=== PATIENT | male | born 1980 | race Caucasian/White ===

== ENCOUNTER 2020-09-20 20:20 | Emergency (ER) | payer BC ==
--- NOTE | 2020-09-20 21:38 | EDM.PDOC ---
ED HPI GENERAL MEDICAL PROBLEM - General Chief Complaint: Respiratory Problem Stated Complaint: COUGH/NO ENERGY Time Seen by Provider: 09/20/20 21:15 Source of Information: Reports: Patient History Limitations: Reports: No Limitations - History of Present Illness INITIAL COMMENTS - FREE TEXT/NARRATIVE: Mr. 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 He developed a nonproductive cough that causes chest discomfort and tightness, on 09/15/2020, then dyspnea on 09/17/2020. He has had slight nausea, but no vomiting. No abdominal pain or diarrhea. The patient states that he has taken some acetaminophen, but none since . Here in the ED, the patient is found to be hemodynamically stable, afebrile, saturating 97% on room air. He appears to be comfortable, no acute distress. Prior to 09/11/2020, the patient denies having a recent fever, chills, sore throat, ear pain, nasal or sinus congestion, cough, dyspnea, chest pain, palpitations, nausea, vomiting, constipation, diarrhea, abdominal pain, urinary symptoms, recent weight gain or weight loss, recent bloody bowel movements or black bowel movements, recent joint aches, headaches, or rashes. The patient's PCP is Dr. Luciano Lehman. His Hospice Rn is at [facility]. He has not received a COVID vaccination. - Related Data Allergies Allergy/AdvReac Type Severity Reaction Status Date / Time No Known Allergies Allergy Verified 09/20/20 20:58 Home Meds: Home Meds Omeprazole Magnesium [Prilosec Otc] 20 mg PO DAILY 09/20/20 [History] Tacrolimus 2 mg PO BID 09/20/20 [History] atorvaSTATin [Lipitor] 10 mg PO DAILY 09/20/20 [History] lisinopriL [Lisinopril] 10 mg PO DAILY 09/20/20 [History] mycophenolate mofetiL [Mycophenolate Mofetil] 500 mg PO BID 09/20/20 [History] predniSONE [Prednisone] 5 mg PO DAILY 09/20/20 [History] Past Medical History Cardiovascular History: Reports: High Cholesterol, Hypertension Genitourinary History: Reports: Chronic Renal Insuffiency (medication-induced, s/p kidney transplant Aug 2009) Musculoskeletal History: Reports: Gout (suspected, not confirmed) - Past Surgical History Male Surgical History: Reports: Nephrectomy (left, at 5 yrs old), Other (See Below) (Kidney transplant August 2009) Neurological Surgical History: Reports: Lumbar Spine (discectomy) Social & Family History - Tobacco Use Tobacco Use Status *Q: Never Tobacco User - Alcohol Use Alcohol Use History: Yes Alcohol Use Frequency: Socially - Recreational Drug Use Recreational Drug Use: No - Living Situation & Occupation Living situation: Reports: , with Spouse, with Family (2 kids) Occupation: Employed (Technical Services Coordinator of an el?) ED ROS GENERAL - Review of Systems Review Of Systems: Comprehensive ROS is negative, except as noted in HPI. ED EXAM, GENERAL - Physical Exam Exam: See Below Exam Limited By: No Limitations General Appearance: Alert, WD/WN, No Apparent Distress Eye Exam: Bilateral Eye: EOMI, Normal Inspection Ears: Normal External Exam, Hearing Grossly Normal Nose: Normal Inspection Throat/Mouth: Normal Inspection, Normal Lips, Normal Voice, No Airway Compromise Head: Atraumatic, Normocephalic Neck: Normal Inspection, Full Range of Motion Respiratory/Chest: No Respiratory Distress, Lungs Clear, Normal Breath Sounds, No Accessory Muscle Use, Other (Taking a deep breath induces a cough). No: Decreased Breath Sounds, Crackles, Rhonchi, Wheezing, Stridor, Prolonged Expiration Cardiovascular: Normal Peripheral Pulses, Regular Rate, Rhythm, No Edema, No Gallop, No JVD, No Murmur, No Rub Peripheral Pulses: 3+: Radial (L), Radial (R) GI/Abdominal: Normal Bowel Sounds, Soft, Non-Tender, No Organomegaly, No Distention, No Abnormal Bruit, No Mass Back Exam: Normal Inspection, Full Range of Motion, NT Extremities: Normal Inspection, Normal Range of Motion, No Pedal Edema, Normal Capillary Refill Neurological: Alert, Oriented, Normal Cognition, No Motor/Sensory Deficits Psychiatric: Normal Affect Skin Exam: Warm, Dry, Intact, Normal Color, No Rash Course - Vital Signs Last Recorded V/S: Last Vital Signs Temp 37.0 C 09/20/20 21:13 Pulse 100 09/20/20 21:13 Resp 20 09/20/20 21:13 BP 117/73 09/20/20 21:13 Pulse Ox 96 09/20/20 21:13 - Orders/Labs/Meds Orders: Active Orders 24 hr Category Date Time Status Chest 2V [CR] Stat Exams 09/20/20 21:33 Taken BLOOD CULTURE [MREF] Stat Lab 09/20/20 22:42 Received BLOOD CULTURE [MREF] Stat Lab 09/20/20 22:50 Received Blood Culture x2 Reflex Set [OM.PC] Stat Oth 09/20/20 22:22 Ordered Labs: Laboratory Tests 09/20/20 09/20/20 09/20/20 Range/Units 21:09 22:42 22:42 WBC 4.12 L (4.23-9.07) K/mm3 RBC 4.32 L (4.63-6.08) M/mm3 Hgb 12.9 L (13.7-17.5) gm/dl Hct 36.8 L (40.1-51.0) % MCV 85.2 (79.0-92.2) fl MCH 29.9 (25.7-32.2) pg MCHC 35.1 (32.2-35.5) g/dl RDW Std Deviation 41.4 (35.1-43.9) fL Plt Count 182 (163-337) K/mm3 MPV 9.5 (9.4-12.3) fl Neutrophils % (Manual) 83 H (40-60) % Band Neutrophils % 0 (0-10) % Lymphocytes % (Manual) 12 L (20-40) % Atypical Lymphs % 0 % Monocytes % (Manual) 5 (2-10) % Eosinophils % (Manual) 0 L (0.8-7.0) % Basophils % (Manual) 0 L (0.2-1.2) Platelet Estimate Adequate RBC Morph Comment Normal D-Dimer, Quantitative (0.19-0.50) mg/L Sodium 135 L (136-145) mEq/L Potassium 4.5 (3.5-5.1) mEq/L Chloride 104 (98-107) mEq/L Carbon Dioxide 15 L (21-32) mEq/L Anion Gap 20.5 H (5-15) BUN 35 H (7-18) mg/dL Creatinine 1.6 H (0.7-1.3) mg/dL Est Cr Clr Drug Dosing 70.74 mL/min Estimated GFR (MDRD) 49 (>60) mL/min BUN/Creatinine Ratio 21.9 H (14-18) Glucose 155 H (70-99) mg/dL Lactic Acid (0.4-2.0) mmol/L Calcium 8.0 L (8.5-10.1) mg/dL Magnesium 1.7 L (1.8-2.4) mg/dL Total Bilirubin 0.4 (0.2-1.0) mg/dL AST 23 (15-37) U/L ALT 40 (16-63) U/L Alkaline Phosphatase 66 (46-116) U/L Total Protein 6.8 (6.4-8.2) g/dl Albumin 3.0 L (3.4-5.0) g/dl Globulin 3.8 gm/dL Albumin/Globulin Ratio 0.8 L (1-2) SARS-CoV-2 RNA (ANYA) Positive H (NEGATIVE) 09/20/20 09/20/20 Range/Units 22:42 22:50 WBC (4.23-9.07) K/mm3 RBC (4.63-6.08) M/mm3 Hgb (13.7-17.5) gm/dl Hct (40.1-51.0) % MCV (79.0-92.2) fl MCH (25.7-32.2) pg MCHC (32.2-35.5) g/dl RDW Std Deviation (35.1-43.9) fL Plt Count (163-337) K/mm3 MPV (9.4-12.3) fl Neutrophils % (Manual) (40-60) % Band Neutrophils % (0-10) % Lymphocytes % (Manual) (20-40) % Atypical Lymphs % % Monocytes % (Manual) (2-10) % Eosinophils % (Manual) (0.8-7.0) % Basophils % (Manual) (0.2-1.2) Platelet Estimate RBC Morph Comment D-Dimer, Quantitative 0.36 (0.19-0.50) mg/L Sodium (136-145) mEq/L Potassium (3.5-5.1) mEq/L Chloride (98-107) mEq/L Carbon Dioxide (21-32) mEq/L Anion Gap (5-15) BUN (7-18) mg/dL Creatinine (0.7-1.3) mg/dL Est Cr Clr Drug Dosing mL/min Estimated GFR (MDRD) (>60) mL/min BUN/Creatinine Ratio (14-18) Glucose (70-99) mg/dL Lactic Acid 0.8 (0.4-2.0) mmol/L Calcium (8.5-10.1) mg/dL Magnesium (1.8-2.4) mg/dL Total Bilirubin (0.2-1.0) mg/dL AST (15-37) U/L ALT (16-63) U/L Alkaline Phosphatase (46-116) U/L Total Protein (6.4-8.2) g/dl Albumin (3.4-5.0) g/dl Globulin gm/dL Albumin/Globulin Ratio (1-2) SARS-CoV-2 RNA (ANYA) (NEGATIVE) Meds: Medications Discontinued Medications Generic Name Dose Route Start Last Admin Trade Name Freq PRN Reason Stop Dose Admin Sodium Chloride 1,000 mls @ 999 mls/hr 09/20/20 23:48 09/21/20 00:06 Normal Saline IV 09/21/20 00:48 999 mls/hr ONETIME ONE Administration - Re-Assessments/Exams Free Text/Narrative Re-Assessment/Exam: 09/20/20 21:34 As above, the patient developed a fever and chills on 09/11/2020, which resolved on or about the , a nonproductive cough on Sunday the , which induces chest tightness and discomfort, and dyspnea on or about Sunday. He has taken some acetaminophen, but none since . He is afebrile, with an oxygen saturation of 97% here in the ED, and his physical exam is entirely unremarkable, with the exception that taking a deep breath induces his cough. His nurse swabbed him for the SARS-CoV-2 virus, and I have added a chest x-ray. Provided his chest x-ray is unremarkable, I do not see an indication for blood work. 09/20/20 22:18 Two-view chest radiograph reviewed. The cardiac silhouette is within normal limits. No pulmonary vascular congestion. No pleural effusions. There is a hazy infiltrate in the left upper lobe, consistent with pneumonia. A small right-sided infiltrate cannot be ruled out. No pneumothorax. Formal read per the Radiologist pending. The patient's swab for the SARS-CoV-2 virus is positive. As in the above, I will order some blood tests, including 2 sets of blood cultures, to help distinguish if the patient has a superimposed bacterial pneumonia. 09/20/20 22:31 Test results discussed with the patient. Because he is on immunosuppressive medications (tacrolimus + prednisone) to prevent rejection of his transplanted kidney, the patient is a candidate to receive Regen-Cov. We discussed this at length. The patient wants to discuss it with his , and will let me know if he wants to proceed with it. 09/20/20 23:03 Notified that the patient has elected to NOT receive Regen-Cov. 09/20/20 23:40 The patient's CBC is remarkable for leukopenia of 4.12, but with 0% bandemia. He has lymphopenia of 12%. His H/H are mildly depressed at 12.9/36.8, with the remainder of his CBC being unremarkable. His CMP is remarkable for slight hyponatremia of 135, an anion gap mildly elevated at 20.5 with a bicarbonate depressed at 15, a BUN/Cr elevated at 35/1.6, and hyperglycemia of 155, with the remainder of his CMP being unremarkable. His magnesium level is slightly depressed at 1.7. His lactic acid level is within normal limits at 0.8. His D-dimer is within normal limits at 0.36. 09/20/20 23:48 Test results discussed with the patient. He states that his Cr is normally 1.1. Based on that, he will be given 1 L of IV fluid before being discharged home. 09/21/20 01:32 The IV fluid has finished infusing. The patient states that he feels well enough to go home. I will have him discharge him home with recommendation that he stays adequately hydrated, then follow-up with Dr. Lehman later this week to recheck his kidney function. The patient will need to strictly isolate for 10 days, then get rechecked for the SARS-CoV-2 virus. Departure - Departure Time of Disposition: 01:34 Disposition: Home, Self-Care 01 Condition: Good Clinical Impression: COVID-19, Acute renal failure - Discharge Information *PRESCRIPTION DRUG MONITORING PROGRAM REVIEWED*: Not Applicable *COPY OF PRESCRIPTION DRUG MONITORING REPORT IN PATIENT RYDER: Not Applicable Referrals: Luciano Lehman MD [Primary Care Provider] - Forms: ED Department Discharge Additional Instructions: You were seen in the emergency room for a fever and chills, a dry cough causing chest discomfort, shortness of breath, and some nausea. Work-up in the ER included numerous blood tests, 2 sets of blood cultures, a swab for the SARS-CoV-2 virus, and a chest x-ray. Your swab for the SARS-CoV-2 virus returned positive, indicating that you have COVID-19. Your BUN/Cr were found to be elevated at 235/1.6, indicating acute renal insufficiency. You were treated with IV fluid in the ER. You declined an offer for an infusion of the monoclonal antibodies Regen-Cov. As discussed, it is imperative that you strictly isolate for the next 10 days. We recommend that you get retested for the SARS-CoV-2 virus at that time. We recommend that you stay adequately hydrated, and contact your PCP, Dr. Luciano Lehman, in order to have your kidney function retested later this week. If any other problems, please do not hesitate to return to the ER. Sepsis Event Note (ED) - Evaluation Sepsis Screening Result: No Definite Risk - Focused Exam Vital Signs: Vital Signs Temp Pulse Resp BP Pulse Ox 09/20/20 21:13 37.0 C 100 20 117/73 96 09/20/20 21:05 37.0 C 100 18 117/71 97 - My Orders Last 24 Hours: My Active Orders 09/20/20 21:33 Chest 2V [CR] Stat 09/20/20 22:22 Blood Culture x2 Reflex Set [OM.PC] Stat 09/20/20 22:42 BLOOD CULTURE [MREF] Stat 09/20/20 22:50 BLOOD CULTURE [MREF] Stat - Assessment/Plan Last 24 Hours: My Active Orders 09/20/20 21:33 Chest 2V [CR] Stat 09/20/20 22:22 Blood Culture x2 Reflex Set [OM.PC] Stat 09/20/20 22:42 BLOOD CULTURE [MREF] Stat 09/20/20 22:50 BLOOD CULTURE [MREF] Stat
[2020-09-20] MEDS ORDERED: Sodium Chloride 0.9% 1,000 ML IV ONE (23:48)
--- NOTE | 2020-09-21 09:31 | CR ---
Chest: 2 views of the chest were obtained. Comparison: No prior chest imaging is available. Patchy area of increased density are seen within the left upper chest. Minimal scattered areas of increased density are seen within the right chest. Minimal density is noted within the left chest base. Heart size and mediastinum are normal. Bony structures were unremarkable. Impression: 1. Increased density on both sides of the chest, worse within the left upper lung. Findings suspicious for multifocal pneumonia. Please rule out COVID disease. Diagnostic code #3
== END 2020-09-21 01:45 | disposition home or self-care (01) ==
LOC: JD.ED 20:20
DX: U07.1 COVID-19 (principal); I12.9 Hypertensive chronic kidney disease with stage 1 through stage 4 chronic kidney disease, or unspecified chronic kidney disease; N18.9 Chronic kidney disease, unspecified; N17.9 Acute kidney failure, unspecified; E78.00 Pure hypercholesterolemia, unspecified; Z94.0 Kidney transplant status; Z79.899 Other long term (current) drug therapy
CPT/HCPCS: 36415; 71046; 71046-26; 80053; 83605; 83735; 85007; 85027; 85379; 87040; 99283; 99283-25; J7030; U0002

== ENCOUNTER 2020-09-23 15:03 | Emergency (ER) | payer BC ==
[2020-09-23] MEDS ORDERED: Hydrocortisone Sodium Succinate 100 MG/2 ML SDV IVPUSH ONE (15:49)
--- NOTE | 2020-09-23 15:49 | EDM.PDOC ---
ED HPI GENERAL MEDICAL PROBLEM - General Chief Complaint: Respiratory Problem Stated Complaint: DIFFICULTY BREATHING Time Seen by Provider: 09/23/20 15:44 Source of Information: Reports: Patient History Limitations: Reports: No Limitations - History of Present Illness INITIAL COMMENTS - FREE TEXT/NARRATIVE: 40-year-old male presents to the ED with known Covid positivity since Sunday evening September 20. Patient refused monoclonal antibodies at that time when seen through the emergency room. Patient is immunocompromised having had a kidney transplant 11 years ago. He takes tacrolimus and prednisone 5 mg daily. Today he is increased his prednisone to 5 mg twice daily. Of note the patient would be adrenal insufficiency due to chronic steroid use. Patient has paroxysmal minimally productive cough. Dyspnea at rest with O2 sats reportedly 82 to 84% when he presented to the ED today. He states his symptoms started on September 11. This is when he developed fever chills headache and body aches. He did have some mild diarrhea once or twice daily for 3 to 4 days. This is since abated. Appetite remains extremely poor. He did have some cereal this morning. Urine is darker in color. He has been trying to take adequate fluid intake. He was up all night last night due to dyspnea. He states fever and chills have gone away as well. Onset: Gradual Onset Date: 09/21/20 (3 days.) Duration: Day(s):, Getting Worse Location: Reports: Chest (Increased dyspnea with hypoxia at rest.) Quality: Reports: Other Severity: Severe (Severe dyspnea) Improves with: Reports: Rest Worsens with: Reports: Other Context: Reports: Other (Of a 19 illness.). Denies: Activity, Exercise (Worse with eating and walking or moving.), Lifting, Sick Contact, Trauma Associated Symptoms: Reports: Chest Pain, Cough (Central chest discomfort with coughing.), cough w sputum (Brings up occasional sputum but has not had a look at it.), Fever/Chills (At initial onset of illness September 11 to about the .), Headaches, Loss of Appetite, Malaise, Nausea/Vomiting, Shortness of Breath, Weakness (Occasional nausea no vomiting). Denies: Confusion, Diaphoresis, Rash, Seizure, Syncope Treatments [employer]: Reports: Acetaminophen ( generalized weakness) - Related Data Allergies Allergy/AdvReac Type Severity Reaction Status Date / Time No Known Allergies Allergy Verified 08/19/21 15:14 Home Meds: Home Meds Omeprazole Magnesium [Prilosec Otc] 20 mg PO DAILY 09/20/20 [History] Tacrolimus 2 mg PO BID 09/20/20 [History] atorvaSTATin [Lipitor] 10 mg PO DAILY 09/20/20 [History] lisinopriL [Lisinopril] 10 mg PO DAILY 09/20/20 [History] predniSONE [Prednisone] 5 mg PO BID 09/20/20 [History] Past Medical History Cardiovascular History: Reports: High Cholesterol, Hypertension Gastrointestinal History: Reports: GERD Genitourinary History: Reports: Other (See Below) (Renal transplant patient 11 years ago. 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 In his late 20s he received allopurinol for gout and it destroyed his normal kidney. He has a kidney transplant right lower quadrant of the abdomen x11 years.) Musculoskeletal History: Reports: Gout Endocrine/Metabolic History: Reports: Other (See Below) (Chronic steroid dependency since renal transplant. Adrenal insufficiency.) - Infectious Disease History Infectious Disease History: Reports: Novel Coronavirus - Past Surgical History Male Surgical History: Reports: Nephrectomy, Other (See Below) Other Male Surgeries/Procedures: transplant kidney Neurological Surgical History: Reports: Lumbar Spine Social & Family History - Family History Family Medical History: No Pertinent Family History - Tobacco Use Tobacco Use Status *Q: Never Tobacco User Second Hand Smoke Exposure: No - Caffeine Use Caffeine Use: Reports: Coffee - Recreational Drug Use Recreational Drug Use: No - Living Situation & Occupation Living situation: Reports: , with Spouse, with Family (2 kids) 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 Denies: Fever, Chills HEENT: Reports: No Symptoms Respiratory: Reports: Shortness of Breath, Wheezing, Cough, Sputum. Denies: Pleuritic Chest Pain, Hemoptysis Cardiovascular: Reports: Chest Pain (Mild central chest discomfort from coughing so much), Blood Pressure Problem (Blood pressures been running a bit lower than normal.), Dyspnea on Exertion, Lightheadedness. Denies: Edema, Orthopnea Endocrine: Reports: Fatigue GI/Abdominal: Reports: Diarrhea (Diarrhea with initial onset of illness but better now.), Decreased Appetite, Nausea (Comes in waves.). Denies: Vomiting : Reports: Other (Urine is dark kit in color.) Musculoskeletal: Reports: Muscle Pain (Generalized myalgia. Particular large muscles neck low back thighs) Skin: Reports: No Symptoms Neurological: Reports: Headache, Difficulty Walking (Due to dyspnea.), Weakness. Denies: Confusion, Dizziness, Numbness, Syncope, Tingling (With initial onset of illness better now.) Psychiatric: Reports: No Symptoms Hematologic/Lymphatic: Reports: No Symptoms Immunologic: Reports: No Symptoms ED EXAM, GENERAL - Physical Exam Exam: See Below Exam Limited By: No Limitations General Appearance: Alert, WD/WN, Moderate Distress, Other (Patient is defin itely ill. He is very tachypneic at rest with O2 sats reportedly 82% upon arrival in the ED.) Eye Exam: Bilateral Eye: Normal Inspection (No blepharal pallor or scleral icter us.), PERRL Ears: Normal TMs Throat/Mouth: Normal Inspection, Normal Lips, Normal Teeth, Normal Oropharynx, Other Head: Atraumatic (Oropharynx is otherwise normal. Tongue is mildly dry and coated), Normocephalic Neck: Normal Inspection, Supple, Non-Tender, Full Range of Motion. No: Carotid Bruit, Lymphadenopathy (L), Lymphadenopathy (R) Respiratory/Chest: Lungs Clear, Normal Breath Sounds, No Accessory Muscle Use, Respiratory Distress (Kidney and rest with O2 sats of only 82% room air.), Other (Remittent paroxysmal nonproductive cough) Cardiovascular: Normal Peripheral Pulses, Regular Rate, Rhythm, No Edema, No Gallop, No Murmur, No Rub Peripheral Pulses: 3+: Carotid (L), Carotid (R), Posterior Tibial (L), Posterior Tibial (R), Dorsalis Pedis (L), Dorsalis Pedis (R) GI/Abdominal: Normal Bowel Sounds, Soft, Non-Tender, No Organomegaly, No Abnormal Bruit, No Mass, Pelvis Stable, Other (Right lower quadrant abdominal scar with kidney transplant in this area. The transplanted kidney is barely palpable.) (Male) Exam: No Hernia Back Exam: Normal Inspection, Full Range of Motion. No: CVA Tenderness (L), CVA Tenderness (R) Extremities: Normal Inspection, Normal Range of Motion, Non-Tender, No Pedal Edema Neurological: Alert, Oriented, CN II-XII Intact, Normal Cognition Psychiatric: Normal Affect, Normal Mood Skin Exam: Warm, Dry, Intact, Normal Color, No Rash. No: Cyanosis #1 Interpretation EKG Date: 09/23/20 Time: 15:58 Rhythm: NSR Rate (Beats/Min): 84 [place]: LAD-Left [place] Deviation (-22 degrees) P-Wave: Enlarged (Consider left atrial hypertrophy) QRS: Other (RSR prime wave lead V1 and V2 consider normal variant. Early R wave transition consider septal hypertrophy pattern) ST-T: Other (Nonspecific T wave flattening V2) QT: Normal EKG Interpretation Comments: Borderline ECG Course - Vital Signs Last Recorded V/S: Last Vital Signs Temp 36.7 C 09/23/20 15:10 Pulse 87 09/23/20 15:29 Resp 28 H 09/23/20 15:29 BP 123/76 09/23/20 15:29 Pulse Ox 98 09/23/20 16:40 - Orders/Labs/Meds Orders: Active Orders 24 hr Category Date Time Status Chest 1V Frontal [CR] Stat Exams 09/23/20 15:44 Taken BLOOD CULTURE [MREF] Stat Lab 09/23/20 16:14 Received BLOOD CULTURE [MREF] Stat Lab 09/23/20 16:24 Received HEPATIC FUNCTION PANEL,HFP [CHEM] DAILY Lab 09/24/20 17:30 Ordered HEPATIC FUNCTION PANEL,HFP [CHEM] DAILY Lab 09/25/20 17:30 Ordered HEPATIC FUNCTION PANEL,HFP [CHEM] DAILY Lab 09/26/20 17:30 Ordered HEPATIC FUNCTION PANEL,HFP [CHEM] DAILY Lab 09/27/20 17:30 Ordered Dextrose 5%-0.9% NaCl [Dextrose 5%-Normal Saline] 1,000 Med 09/23/20 16:00 Active ml IV ASDIRECTED Enoxaparin [Lovenox] Med 09/23/20 17:47 Active 87 mg SUBCUT DAILY Blood Culture x2 Reflex Set [OM.PC] Stat Oth 09/23/20 15:45 Ordered Medication Orders Enoxaparin Sodium (Enoxaparin 100 Mg/1 Ml Syringe) 87 mg SUBCUT DAILY [facility] Last Admin: 09/23/20 19:12 Dose: 87 mg Documented by: SCHKAT Dextrose/Sodium Chloride (Dextrose 5%-Normal Saline) 1,000 mls @ 100 mls/hr IV ASDIRECTED [facility] Last Admin: 09/23/20 16:24 Dose: 100 mls/hr Documented by: CHAYO Labs: Laboratory Tests 09/23/20 09/23/20 09/23/20 Range/Units 15:20 15:20 15:20 WBC 6.04 (4.23-9.07) K/mm3 RBC 4.60 L (4.63-6.08) M/mm3 Hgb 13.7 (13.7-17.5) gm/dl Hct 38.5 L (40.1-51.0) % MCV 83.7 (79.0-92.2) fl MCH 29.8 (25.7-32.2) pg MCHC 35.6 H (32.2-35.5) g/dl RDW Std Deviation 40.5 (35.1-43.9) fL Plt Count 295 D (163-337) K/mm3 MPV 9.3 L (9.4-12.3) fl Neut % (Auto) 76.8 H (34.0-67.9) % Lymph % (Auto) 11.4 L (21.8-53.1) % [place] % (Auto) 11.3 (5.3-12.2) % Eos % (Auto) 0.2 L (0.8-7.0) Baso % (Auto) 0.0 L (0.1-1.2) % Neut # (Auto) 4.64 (1.78-5.38) K/mm3 Lymph # (Auto) 0.69 L (1.32-3.57) K/mm3 [place] # (Auto) 0.68 (0.30-0.82) K/mm3 Eos # (Auto) 0.01 L (0.04-0.54) K/mm3 Baso # (Auto) 0.00 L (0.01-0.08) K/mm3 PT 10.8 (9.7-12.0) SECONDS INR 1.01 D-Dimer, Quantitative (0.19-0.50) mg/L Puncture Site ABG pH (7.35-7.45) ABG pCO2 (35.0-45.0) mmHg ABG pO2 (80.0-100.0) mmHg ABG HCO3 (22.0-26.0) meq/L ABG O2 Saturation (96.0-97.0) % ABG Base Excess (-2-2.0) Shane Test O2 Delivery Device Sodium 135 L (136-145) mEq/L Potassium 4.8 (3.5-5.1) mEq/L Chloride 103 (98-107) mEq/L Carbon Dioxide 13 L (21-32) mEq/L Anion Gap 23.8 H (5-15) BUN 45 H (7-18) mg/dL Creatinine 2.1 H (0.7-1.3) mg/dL Est Cr Clr Drug Dosing 53.90 mL/min Estimated GFR (MDRD) 36 (>60) mL/min BUN/Creatinine Ratio 21.4 H (14-18) Glucose 213 H (70-99) mg/dL Lactic Acid (0.4-2.0) mmol/L Calcium 8.7 (8.5-10.1) mg/dL Magnesium 1.7 L (1.8-2.4) mg/dL Total Bilirubin 0.5 (0.2-1.0) mg/dL AST 23 (15-37) U/L ALT 38 (16-63) U/L Alkaline Phosphatase 66 (46-116) U/L Lactate Dehydrogenase 380 H (85-227) U/L CK-MB (CK-2) 1.3 (0-3.6) ng/ml Troponin I < 0.017 (0.00-0.056) ng/mL C-Reactive Protein 3.6 H* (<1.0) mg/dL NT-Pro-B Natriuret Pep (0-125) pg/mL Total Protein 7.4 (6.4-8.2) g/dl Albumin 3.0 L (3.4-5.0) g/dl Globulin 4.4 gm/dL Albumin/Globulin Ratio 0.7 L (1-2) 09/23/20 09/23/20 09/23/20 Range/Units 15:20 15:20 15:37 WBC (4.23-9.07) K/mm3 RBC (4.63-6.08) M/mm3 Hgb (13.7-17.5) gm/dl Hct (40.1-51.0) % MCV (79.0-92.2) fl MCH (25.7-32.2) pg MCHC (32.2-35.5) g/dl RDW Std Deviation (35.1-43.9) fL Plt Count (163-337) K/mm3 MPV (9.4-12.3) fl Neut % (Auto) (34.0-67.9) % Lymph % (Auto) (21.8-53.1) % [place] % (Auto) (5.3-12.2) % Eos % (Auto) (0.8-7.0) Baso % (Auto) (0.1-1.2) % Neut # (Auto) (1.78-5.38) K/mm3 Lymph # (Auto) (1.32-3.57) K/mm3 [place] # (Auto) (0.30-0.82) K/mm3 Eos # (Auto) (0.04-0.54) K/mm3 Baso # (Auto) (0.01-0.08) K/mm3 PT (9.7-12.0) SECONDS INR D-Dimer, Quantitative 0.76 H (0.19-0.50) mg/L Puncture Site Lt radial ABG pH 7.29 L (7.35-7.45) ABG pCO2 22.2 L (35.0-45.0) mmHg ABG pO2 70.0 L (80.0-100.0) mmHg ABG HCO3 10.4 L (22.0-26.0) meq/L ABG O2 Saturation 93.9 L (96.0-97.0) % ABG Base Excess -14.4 L (-2-2.0) Shane Test Positive O2 Delivery Device Room air Sodium (136-145) mEq/L Potassium (3.5-5.1) mEq/L Chloride (98-107) mEq/L Carbon Dioxide (21-32) mEq/L Anion Gap (5-15) BUN (7-18) mg/dL Creatinine (0.7-1.3) mg/dL Est Cr Clr Drug Dosing mL/min Estimated GFR (MDRD) (>60) mL/min BUN/Creatinine Ratio (14-18) Glucose (70-99) mg/dL Lactic Acid (0.4-2.0) mmol/L Calcium (8.5-10.1) mg/dL Magnesium (1.8-2.4) mg/dL Total Bilirubin (0.2-1.0) mg/dL AST (15-37) U/L ALT (16-63) U/L Alkaline Phosphatase (46-116) U/L Lactate Dehydrogenase (85-227) U/L CK-MB (CK-2) (0-3.6) ng/ml Troponin I (0.00-0.056) ng/mL C-Reactive Protein (<1.0) mg/dL NT-Pro-B Natriuret Pep 95 (0-125) pg/mL Total Protein (6.4-8.2) g/dl Albumin (3.4-5.0) g/dl Globulin gm/dL Albumin/Globulin Ratio (1-2) 09/23/20 Range/Units 16:24 WBC (4.23-9.07) K/mm3 RBC (4.63-6.08) M/mm3 Hgb (13.7-17.5) gm/dl Hct (40.1-51.0) % MCV (79.0-92.2) fl MCH (25.7-32.2) pg MCHC (32.2-35.5) g/dl RDW Std Deviation (35.1-43.9) fL Plt Count (163-337) K/mm3 MPV (9.4-12.3) fl Neut % (Auto) (34.0-67.9) % Lymph % (Auto) (21.8-53.1) % [place] % (Auto) (5.3-12.2) % Eos % (Auto) (0.8-7.0) Baso % (Auto) (0.1-1.2) % Neut # (Auto) (1.78-5.38) K/mm3 Lymph # (Auto) (1.32-3.57) K/mm3 [place] # (Auto) (0.30-0.82) K/mm3 Eos # (Auto) (0.04-0.54) K/mm3 Baso # (Auto) (0.01-0.08) K/mm3 PT (9.7-12.0) SECONDS INR D-Dimer, Quantitative (0.19-0.50) mg/L Puncture Site ABG pH (7.35-7.45) ABG pCO2 (35.0-45.0) mmHg ABG pO2 (80.0-100.0) mmHg ABG HCO3 (22.0-26.0) meq/L ABG O2 Saturation (96.0-97.0) % ABG Base Excess (-2-2.0) Shane Test O2 Delivery Device Sodium (136-145) mEq/L Potassium (3.5-5.1) mEq/L Chloride (98-107) mEq/L Carbon Dioxide (21-32) mEq/L Anion Gap (5-15) BUN (7-18) mg/dL Creatinine (0.7-1.3) mg/dL Est Cr Clr Drug Dosing mL/min Estimated GFR (MDRD) (>60) mL/min BUN/Creatinine Ratio (14-18) Glucose (70-99) mg/dL Lactic Acid 1.5 (0.4-2.0) mmol/L Calcium (8.5-10.1) mg/dL Magnesium (1.8-2.4) mg/dL Total Bilirubin (0.2-1.0) mg/dL AST (15-37) U/L ALT (16-63) U/L Alkaline Phosphatase (46-116) U/L Lactate Dehydrogenase (85-227) U/L CK-MB (CK-2) (0-3.6) ng/ml Troponin I (0.00-0.056) ng/mL C-Reactive Protein (<1.0) mg/dL NT-Pro-B Natriuret Pep (0-125) pg/mL Total Protein (6.4-8.2) g/dl Albumin (3.4-5.0) g/dl Globulin gm/dL Albumin/Globulin Ratio (1-2) Meds: Medications Generic Name Dose Route Start Last Admin Trade Name Freq PRN Reason Stop Dose Admin Enoxaparin Sodium 87 mg 09/23/20 17:47 09/23/20 19:12 Enoxaparin 100 Mg/1 Ml Syringe SUBCUT 87 mg DAILY LYLA Administration Dextrose/Sodium Chloride 1,000 mls @ 100 mls/hr 09/23/20 16:00 09/23/20 16:24 Dextrose 5%-Normal Saline IV 100 mls/hr ASDIRECTED LYLA Administration Discontinued Medications Generic Name Dose Route Start Last Admin Trade Name Nathan PRN Reason Stop Dose Admin Hydrocortisone Sodium Succinate 100 mg 09/23/20 15:49 09/23/20 16:24 Hydrocortisone Sodium Succinate 100 Mg/2 Ml Sdv IVPUSH 09/23/20 15:50 100 mg ONETIME ONE Administration Remdesivir 200 mg/ Sodium 250 mls @ 250 mls/hr 09/23/20 17:21 09/23/20 18:00 Chloride IV 09/23/20 17:22 250 mls/hr ONETIME ONE Administration Methylprednisolone Sodium 258 mls @ 258 mls/hr 09/23/20 18:12 09/23/20 19:13 Succinate 1,000 mg/ Sodium IV 09/23/20 18:13 258 mls/hr Chloride ONETIME ONE Administration - Radiology Interpretation Free Text/Narrative:: 40-year-old male presents to the ED with known Covid positivity diagnosed on Sunday night in the ED September 20. Patient was advised to consider monoclonal antibody therapy but he declined at that time. Subsequently his symptoms have worsened particular with increased dyspnea and paroxysmal cough. Arrives in the ED with O2 sats of only 82% on room air. He was placed on oxygen at 6 L/min by nasal cannula. This achieved O2 sats of 94%. He believes his for symptoms of COVID-19 and all started around September 11 with the fever, headache, body aches and chills. He did have mild diarrhea for 3 to 4 days. Appetite remains very poor. He did have some breakfast cereal this morning. Patient be taken off oxygen for 5 minutes to obtain an ABG. He will then be placed back on oxygen at 6 L/min by nasal cannula. A chest x-ray will be obtained. Routine labs to be obtained as well. IV will be normal saline at 100 mils an hour. He is afebrile at the time of exam. Patient is steroid-dependent for many years taking 5 mg of prednisone daily for antirejection medication due to kidney transplant 11 years ago. He did take an extra dose of prednisone this morning a 10 mg. I am going to give him 100 mg of hydrocortisone IV now. - Re-Assessments/Exams Free Text/Narrative Re-Assessment/Exam: 09/23/20 16:30: Chest x-ray done portably reveals diffuse viral pneumonitis involving both upper and left left lung lobes and all 3 lobes on the right side as well. Cardiac silhouette is normal. No pleural effusions. Mediastinum appears normal. 09/23/20 17:02 White count is in the normal range at 6.04. There is a slight left shift with 76.8% neutrophils on the auto differential. Hemoglobin is 13.7 with hematocrit of 38.5. Platelet count is 295,000. ABGs revealed a pH of 7.29 with a PCO2 of 22.2. PO2 was 70.0. Bicarb is 10.4. This was done on room air. Sodium was slightly low at 135. Potassium is 4.8. Chloride 103 with a bicarb of 13. Anion gap is elevated at 23.8. BUN is 45 with a creatinine of 2.1. GFR is 36 stage IIIb renal insufficiency. Glucose 213. Calcium 8.7. Magnesium slightly low at 1.7. Liver function is normal. LDH is elevated at 380. CK-MB fraction is 1.3. Troponin I was less than 0.017. C-reactive protein is 3.6. BNP is 95. Total protein 7.4 with an albumin fraction of 3.0. 09/23/20 17:02 discussed the findings of his chest x-ray and labs with the patient. Ideally he will be admitted to the hospital. I will speak with our hospitalist Dr. Burns to see if there is ability to admit him here. I am going to give him first dose of remdesivir 200 mg IV now and Solu-Medrol 1 g IV as suggested by Harris --hospitalist here .. 09/23/20 17:30: I have spoken to the 1 call service at [facility] in [place] and in turn spoken with --on-call hospitalist and he is excepted care of this patient. He is asked that I start remdesivir which will be 200 mg IV over 1 hour. He will also be given Lovenox 87 mg subcu due to elevated D-dimer of 7.6 and poor renal function with a creatinine of 2.1 and a GFR of 36. He would not tolerate CT pulmonary angiogram at this time. Patient has been so advised of the reason for his transfer due to being a very high risk patient and immunocompromise state. He understands. Departure - Departure Time of Disposition: 19:18 Disposition: DC/Tfer to Acute Hospital 02 Condition: Serious Clinical Impression: Immunocompromised patient, Renal transplant recipient, Pneumonia due to COVID- 19 virus, Hypoxia, Elevated d-dimer - Discharge Information *PRESCRIPTION DRUG MONITORING PROGRAM REVIEWED*: Not Applicable *COPY OF PRESCRIPTION DRUG MONITORING REPORT IN PATIENT RYDER: Not Applicable Instructions: Hypoxemia Referrals: PCP,None [Primary Care Provider] - Forms: ED Department Discharge Sepsis Event Note (ED) - Evaluation Sepsis Screening Result: No Definite Risk - Focused Exam Vital Signs: Vital Signs Temp Pulse Resp BP Pulse Ox Pulse Ox 09/23/20 16:40 98 09/23/20 15:29 87 28 H 123/76 96 09/23/20 15:10 36.7 C 97 18 107/77 82 L 94 L - My Orders Last 24 Hours: My Active Orders 09/23/20 15:44 Chest 1V Frontal [CR] Stat 09/23/20 15:45 Blood Culture x2 Reflex Set [OM.PC] Stat 09/23/20 16:00 Dextrose 5%-0.9% NaCl [Dextrose 5%-Normal Saline] 1,000 ml IV ASDIRECTED 09/23/20 16:14 BLOOD CULTURE [MREF] Stat 09/23/20 16:24 BLOOD CULTURE [MREF] Stat 09/23/20 17:47 Enoxaparin [Lovenox] 87 mg SUBCUT DAILY 09/24/20 17:30 HEPATIC FUNCTION PANEL,HFP [CHEM] DAILY 09/25/20 17:30 HEPATIC FUNCTION PANEL,HFP [CHEM] DAILY 09/26/20 17:30 HEPATIC FUNCTION PANEL,HFP [CHEM] DAILY 09/27/20 17:30 HEPATIC FUNCTION PANEL,HFP [CHEM] DAILY - Assessment/Plan Last 24 Hours: My Active Orders 09/23/20 15:44 Chest 1V Frontal [CR] Stat 09/23/20 15:45 Blood Culture x2 Reflex Set [OM.PC] Stat 09/23/20 16:00 Dextrose 5%-0.9% NaCl [Dextrose 5%-Normal Saline] 1,000 ml IV ASDIRECTED 09/23/20 16:14 BLOOD CULTURE [MREF] Stat 09/23/20 16:24 BLOOD CULTURE [MREF] Stat 09/23/20 17:47 Enoxaparin [Lovenox] 87 mg SUBCUT DAILY 09/24/20 17:30 HEPATIC FUNCTION PANEL,HFP [CHEM] DAILY 09/25/20 17:30 HEPATIC FUNCTION PANEL,HFP [CHEM] DAILY 09/26/20 17:30 HEPATIC FUNCTION PANEL,HFP [CHEM] DAILY 09/27/20 17:30 HEPATIC FUNCTION PANEL,HFP [CHEM] DAILY
[2020-09-23] MEDS ORDERED: Dextrose 5%-0.9% NaCl 1,000 ML IV SCH (16:00)
[2020-09-23] MEDS ORDERED: methylPREDNISolone Sodium Succinate 2 GM Vial IV ONE (17:21)
[2020-09-23] MEDS ORDERED: REMDESIVIR 200 MG in Sodium Chloride 0.9% 250 ML IV ONE (17:21)
[2020-09-23] MEDS ORDERED: Enoxaparin 100 MG/1 ML Syringe SUBCUT SCH (17:47)
--- NOTE | 2020-09-23 21:12 | CR ---
Chest: Portable view of the chest was obtained. Comparison: Prior chest x-ray of 09/20/20. Patchy areas of increased density are seen on both sides of the chest. Findings on the right side have increased in amount. Findings on the left side have also mildly increased. Heart size and mediastinum are normal. Bony structures are unremarkable. Impression: 1. Patchy areas of increased density on both sides of the chest slightly increased from prior exam compatible with worsening COVID pneumonia. Diagnostic code #3
== END 2020-09-23 19:00 ==
LOC: JD.ED 15:03
DX: U07.1 COVID-19 (principal); J12.82 Pneumonia due to coronavirus disease 2019; R79.89 Other specified abnormal findings of blood chemistry; D84.9 Immunodeficiency, unspecified; E78.00 Pure hypercholesterolemia, unspecified; I10 Essential (primary) hypertension; K21.9 Gastro-esophageal reflux disease without esophagitis; Z79.899 Other long term (current) drug therapy; Z94.0 Kidney transplant status
CPT/HCPCS: 36415; 36600; 71045; 80053; 82553; 82803; 83605; 83615; 83735; 83880; 84484; 85025; 85379; 85610; 86140; 87040; 93005; 96374; 99285; J1650; J1720; J2930; J7042; J7050; 93010

== ENCOUNTER 2020-10-06 14:35 | Emergency (ER) | payer BC ==
[2020-10-06] MEDS ORDERED: Sodium Chloride 0.9% 10 ML Syringe FLUSH PRN (15:18)
--- NOTE | 2020-10-06 15:30 | EDM.PDOC ---
ED HPI GENERAL MEDICAL PROBLEM - General Chief Complaint: Diabetic Complaint Stated Complaint: SENT BY DR. LEHMAN Time Seen by Provider: 10/06/20 14:52 Source of Information: Reports: Patient, RN Notes Reviewed History Limitations: Reports: No Limitations - History of Present Illness INITIAL COMMENTS - FREE TEXT/NARRATIVE: Patient is a 40-year-old male presenting to the emergency department from his primary care provider's office for treatment of elevated blood sugar. Provider reported that her blood blood sugar was 610. Patient was discharged from [facility] in [place] after treatment for Covid. He was sent home on dexamethasone, which he finished yesterday. He states that he feels "great ". Feels he may be little bit more thirsty than normal but denies increased urination, nausea, or vomiting. Denies any known history of diabetes, however reports that he was receiving insulin while he was in the hospital. States he did have some elevated blood sugars last year but is not aware of anything since that time. Patient has a history significant for renal transplant 11 years ago. States this has been going well and has had no complications. Reports that his CellCept was stopped, therefore he is currently taking prednisone 10 mg daily. - Related Data Allergies Allergy/AdvReac Type Severity Reaction Status Date / Time No Known Allergies Allergy Verified 10/06/20 14:55 Home Meds: Home Meds Omeprazole Magnesium [Prilosec Otc] 20 mg PO DAILY 09/20/20 [History] Tacrolimus 2 mg PO BID 09/20/20 [History] atorvaSTATin [Lipitor] 10 mg PO DAILY 09/20/20 [History] lisinopriL [Lisinopril] 10 mg PO DAILY 09/20/20 [History] predniSONE [Prednisone] 5 mg PO BID 09/20/20 [History] Insulin Aspart [NovoLOG] 0 unit SQ WITHMEALSANDBED #1 pen 10/06/20 [Rx] Past Medical History Cardiovascular History: Reports: High Cholesterol, Hypertension Gastrointestinal History: Reports: GERD Genitourinary History: Reports: Other (See Below) Musculoskeletal History: Reports: Gout Endocrine/Metabolic History: Reports: Other (See Below) - Infectious Disease History Infectious Disease History: Reports: Novel Coronavirus - Past Surgical History Male Surgical History: Reports: Nephrectomy, Other (See Below) Other Male Surgeries/Procedures: transplant kidney Neurological Surgical History: Reports: Lumbar Spine Social & Family History - Family History Family Medical History: No Pertinent Family History - Tobacco Use Tobacco Use Status *Q: Never Tobacco User - Caffeine Use Caffeine Use: Reports: Coffee - Recreational Drug Use Recreational Drug Use: No - Living Situation & Occupation Living situation: Reports: , with Spouse, with Family (2 kids) Occupation: Employed ([employer]le [employer] of an [employer]) ED ROS GENERAL - Review of Systems Review Of Systems: See Below Constitutional: Reports: No Symptoms HEENT: Reports: No Symptoms Respiratory: Reports: No Symptoms Cardiovascular: Reports: No Symptoms Endocrine: Reports: High Glucose, Polydypsia. Denies: Polyuria GI/Abdominal: Reports: No Symptoms. Denies: Abdominal Pain, Nausea, Vomiting : Reports: No Symptoms Musculoskeletal: Reports: No Symptoms Skin: Reports: No Symptoms Neurological: Reports: No Symptoms Psychiatric: Reports: No Symptoms Hematologic/Lymphatic: Reports: No Symptoms Immunologic: Reports: No Symptoms ED EXAM GENERAL NO PERIP PULSE - Physical Exam Exam: See Below General Appearance: Alert, WD/WN, No Apparent Distress Respiratory/Chest: No Respiratory Distress, Lungs Clear, Normal Breath Sounds, No Accessory Muscle Use, Chest Non-Tender Cardiovascular: Normal Peripheral Pulses, Regular Rate, Rhythm, No Edema, No Gallop, No JVD, No Murmur, No Rub GI/Abdominal: Normal Bowel Sounds, Soft, Non-Tender, No Organomegaly, No Distention, No Abnormal Bruit, No Mass Neurological: Alert, Oriented, CN II-XII Intact, Normal Cognition, Normal Gait, Normal Reflexes, No Motor/Sensory Deficits Psychiatric: Normal Affect, Normal Mood Course - Vital Signs Last Recorded V/S: Last Vital Signs Temp 97.8 F 10/06/20 14:50 Pulse 82 10/06/20 14:50 Resp 18 10/06/20 14:50 BP 119/87 10/06/20 14:50 Pulse Ox 93 L 10/06/20 14:50 - Orders/Labs/Meds Labs: Laboratory Tests 10/06/20 10/06/20 10/06/20 Range/Units 15:35 15:35 15:35 WBC 14.70 H (4.23-9.07) K/mm3 RBC 4.55 L (4.63-6.08) M/mm3 Hgb 13.6 L (13.7-17.5) gm/dl Hct 38.1 L (40.1-51.0) % MCV 83.7 (79.0-92.2) fl MCH 29.9 (25.7-32.2) pg MCHC 35.7 H (32.2-35.5) g/dl RDW Std Deviation 38.9 (35.1-43.9) fL Plt Count 305 (163-337) K/mm3 MPV 9.7 (9.4-12.3) fl Neut % (Auto) 88.9 H (34.0-67.9) % Lymph % (Auto) 6.0 L (21.8-53.1) % Cecil % (Auto) 3.9 L (5.3-12.2) % Eos % (Auto) 0.5 L (0.8-7.0) Baso % (Auto) 0.1 (0.1-1.2) % Neut # (Auto) 13.08 H (1.78-5.38) K/mm3 Lymph # (Auto) 0.88 L (1.32-3.57) K/mm3 Cecil # (Auto) 0.57 (0.30-0.82) K/mm3 Eos # (Auto) 0.07 (0.04-0.54) K/mm3 Baso # (Auto) 0.01 (0.01-0.08) K/mm3 Sodium 137 (136-145) mEq/L Potassium 4.5 (3.5-5.1) mEq/L Chloride 106 (98-107) mEq/L Carbon Dioxide 20 L (21-32) mEq/L Anion Gap 15.5 H (5-15) BUN 38 H (7-18) mg/dL Creatinine 1.1 (0.7-1.3) mg/dL Est Cr Clr Drug Dosing 102.90 mL/min Estimated GFR (MDRD) > 60 (>60) mL/min BUN/Creatinine Ratio 34.5 H (14-18) Glucose 501 H* (70-99) mg/dL POC Glucose (70-99) mg/dL Hemoglobin A1c ( - 5.6) % Calcium 8.0 L (8.5-10.1) mg/dL Total Bilirubin 0.5 (0.2-1.0) mg/dL AST 14 L (15-37) U/L ALT 34 (16-63) U/L Alkaline Phosphatase 55 (46-116) U/L Total Protein 5.9 L (6.4-8.2) g/dl Albumin 2.6 L (3.4-5.0) g/dl Globulin 3.3 gm/dL Albumin/Globulin Ratio 0.8 L (1-2) Urine Color (Yellow) Urine Appearance (Clear) Urine pH (5.0-8.0) Ur Specific [place] (1.005-1.030) Urine Protein (Negative) Urine Glucose (UA) (Negative) Urine Ketones (Negative) Urine Occult Blood (Negative) Urine Nitrite (Negative) Urine Bilirubin (Negative) Urine Urobilinogen (0.2-1.0) Ur Leukocyte Esterase (Negative) Urine RBC (0-5) /hpf Urine WBC (0-5) /hpf Ur Squamous Epith Cells (0-5) /hpf Urine Bacteria (FEW) /hpf Urine Mucus (FEW) /hpf Ketones 0.66 (0.0-0.3) mM 10/06/20 10/06/20 10/06/20 Range/Units 15:35 18:23 19:18 WBC (4.23-9.07) K/mm3 RBC (4.63-6.08) M/mm3 Hgb (13.7-17.5) gm/dl Hct (40.1-51.0) % MCV (79.0-92.2) fl MCH (25.7-32.2) pg MCHC (32.2-35.5) g/dl RDW Std Deviation (35.1-43.9) fL Plt Count (163-337) K/mm3 MPV (9.4-12.3) fl Neut % (Auto) (34.0-67.9) % Lymph % (Auto) (21.8-53.1) % Cecil % (Auto) (5.3-12.2) % Eos % (Auto) (0.8-7.0) Baso % (Auto) (0.1-1.2) % Neut # (Auto) (1.78-5.38) K/mm3 Lymph # (Auto) (1.32-3.57) K/mm3 Cecil # (Auto) (0.30-0.82) K/mm3 Eos # (Auto) (0.04-0.54) K/mm3 Baso # (Auto) (0.01-0.08) K/mm3 Sodium (136-145) mEq/L Potassium (3.5-5.1) mEq/L Chloride (98-107) mEq/L Carbon Dioxide (21-32) mEq/L Anion Gap (5-15) BUN (7-18) mg/dL Creatinine (0.7-1.3) mg/dL Est Cr Clr Drug Dosing mL/min Estimated GFR (MDRD) (>60) mL/min BUN/Creatinine Ratio (14-18) Glucose (70-99) mg/dL POC Glucose 305 H 291 H (70-99) mg/dL Hemoglobin A1c 8.8 H ( - 5.6) % Calcium (8.5-10.1) mg/dL Total Bilirubin (0.2-1.0) mg/dL AST (15-37) U/L ALT (16-63) U/L Alkaline Phosphatase (46-116) U/L Total Protein (6.4-8.2) g/dl Albumin (3.4-5.0) g/dl Globulin gm/dL Albumin/Globulin Ratio (1-2) Urine Color (Yellow) Urine Appearance (Clear) Urine pH (5.0-8.0) Ur Specific [place] (1.005-1.030) Urine Protein (Negative) Urine Glucose (UA) (Negative) Urine Ketones (Negative) Urine Occult Blood (Negative) Urine Nitrite (Negative) Urine Bilirubin (Negative) Urine Urobilinogen (0.2-1.0) Ur Leukocyte Esterase (Negative) Urine RBC (0-5) /hpf Urine WBC (0-5) /hpf Ur Squamous Epith Cells (0-5) /hpf Urine Bacteria (FEW) /hpf Urine Mucus (FEW) /hpf Ketones (0.0-0.3) mM 10/06/20 10/06/20 Range/Units 19:34 20:26 WBC (4.23-9.07) K/mm3 RBC (4.63-6.08) M/mm3 Hgb (13.7-17.5) gm/dl Hct (40.1-51.0) % MCV (79.0-92.2) fl MCH (25.7-32.2) pg MCHC (32.2-35.5) g/dl RDW Std Deviation (35.1-43.9) fL Plt Count (163-337) K/mm3 MPV (9.4-12.3) fl Neut % (Auto) (34.0-67.9) % Lymph % (Auto) (21.8-53.1) % Cecil % (Auto) (5.3-12.2) % Eos % (Auto) (0.8-7.0) Baso % (Auto) (0.1-1.2) % Neut # (Auto) (1.78-5.38) K/mm3 Lymph # (Auto) (1.32-3.57) K/mm3 Cecil # (Auto) (0.30-0.82) K/mm3 Eos # (Auto) (0.04-0.54) K/mm3 Baso # (Auto) (0.01-0.08) K/mm3 Sodium (136-145) mEq/L Potassium (3.5-5.1) mEq/L Chloride (98-107) mEq/L Carbon Dioxide (21-32) mEq/L Anion Gap (5-15) BUN (7-18) mg/dL Creatinine (0.7-1.3) mg/dL Est Cr Clr Drug Dosing mL/min Estimated GFR (MDRD) (>60) mL/min BUN/Creatinine Ratio (14-18) Glucose (70-99) mg/dL POC Glucose 226 H (70-99) mg/dL Hemoglobin A1c ( - 5.6) % Calcium (8.5-10.1) mg/dL Total Bilirubin (0.2-1.0) mg/dL AST (15-37) U/L ALT (16-63) U/L Alkaline Phosphatase (46-116) U/L Total Protein (6.4-8.2) g/dl Albumin (3.4-5.0) g/dl Globulin gm/dL Albumin/Globulin Ratio (1-2) Urine Color Yellow (Yellow) Urine Appearance Clear (Clear) Urine pH 6.0 (5.0-8.0) Ur Specific [place] 1.020 (1.005-1.030) Urine Protein Negative (Negative) Urine Glucose (UA) 2+ H (Negative) Urine Ketones Negative (Negative) Urine Occult Blood Negative (Negative) Urine Nitrite Negative (Negative) Urine Bilirubin Negative (Negative) Urine Urobilinogen 0.2 (0.2-1.0) Ur Leukocyte Esterase Negative (Negative) Urine RBC 0-5 (0-5) /hpf Urine WBC 0-5 (0-5) /hpf Ur Squamous Epith Cells 0-5 (0-5) /hpf Urine Bacteria Occasional (FEW) /hpf Urine Mucus Few (FEW) /hpf Ketones (0.0-0.3) mM Meds: Medications Discontinued Medications Generic Name Dose Route Start Last Admin Trade Name Freq PRN Reason Stop Dose Admin Sodium Chloride 1,000 mls @ 999 mls/hr 10/06/20 16:06 10/06/20 17:39 Normal Saline IV 10/06/20 17:06 999 mls/hr NOW STA Administration Insulin Human Regular 100 unit 100 mls @ 6 mls/hr 10/06/20 16:45 10/06/20 18:17 / Sodium Chloride IV 6 unit/hr TITRATE LYLA 6 mls/hr Administration Protocol 6 UNIT/HR Insulin Human Regular 8 unit 10/06/20 16:36 Insulin Regular, Human 100 Units/Ml 3 Ml Vial SUBCUT 10/06/20 16:37 ONETIME ONE Sodium Chloride 10 ml 10/06/20 15:18 10/06/20 17:39 Sodium Chloride 0.9% 10 Ml Syringe FLUSH 10 ml ASDIRECTED PRN Administration Keep Vein Open - Re-Assessments/Exams Free Text/Narrative Re-Assessment/Exam: Patient is a 40-year-old male presenting to the emergency department from his primary care provider's office with complaints of high blood sugar. Glucose in the clinic was found to be 616. Patient has been on dexamethasone up until yesterday after receiving treatment for COVID-19. Reports that he was receiving insulin in the hospital but was not discharged home with insulin. He has no previous history of diabetes. His A1c was checked at [facility] in August and he states that it was 5.5. I have ordered blood work, urinalysis, and a 1 L bolus of normal saline. 10/06/20 16:53 Hematology was significant for WBC elevated at 14.7, hemoglobin 13.6, bicarb 20, anion gap 15.5, BUN 38, glucose 501, hemoglobin A1c 8.8. Ketones are slightly elevated at 0.66. I have ordered an IV insulin drip at 6 units/h to slowly bring his blood sugar down. 10/06/20 21:06 Blood glucose on last check was 226. Insulin drip has been stopped. I have sent prescription for NovoLog sliding scale 4 times daily AC bed. Recommend patient contact primary care provider tomorrow to set up follow-up for ongoing management of diabetes. Blood sugar may come down now that he is off the dexamethasone, however given his A1c, he likely has some underlying diabetes. 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 Patient is in agreement with this plan. Discharge instructions as documented. Departure - Departure Time of Disposition: 21:12 Disposition: Home, Self-Care 01 Condition: Good Clinical Impression: Hyperglycemia - Discharge Information *PRESCRIPTION DRUG MONITORING PROGRAM REVIEWED*: No *COPY OF PRESCRIPTION DRUG MONITORING REPORT IN PATIENT RYDER: No Prescriptions: Insulin Aspart [NovoLOG] 0 unit SQ WITHMEALSANDBED #1 pen Instructions: Hyperglycemia Referrals: Luciano Lehman MD [Primary Care Provider] - Forms: ED Department Discharge Additional Instructions: You were seen in the emergency department today for evaluation with regards to elevated blood sugar. Work-up included blood work, urinalysis. OB work-up did show an elevated blood glucose as well as a hemoglobin A1c of 8.8 indicating that you likely had elevated blood sugars over the course of last 3 months. While in the ER, you received IV fluids and IV insulin which did bring your blood sugar down to an acceptable range. Prescription has been sent for NovoLog insulin on a sliding scale. Check your blood sugars 4 times daily before each meal and at bedtime. Administer insulin as according to the sliding scale. You have been provided prescription for glucometer and test strips as well. Recommend contacting your primary care provider's office tomorrow morning to set up follow-up for ongoing management of elevated blood sugars. I would recommend evaluation by diabetic education as well. If you should experience any new or worsening symptoms, please not hesitate to return to the emergency department for reevaluation. Sepsis Event Note (ED) - Evaluation Sepsis Screening Result: No Definite Risk
[2020-10-06] MEDS ORDERED: Sodium Chloride 0.9% 1,000 ML IV STA (16:06)
[2020-10-06 16:09] LABS: HEMOGLOBIN A1C 8.8 %
[2020-10-06] MEDS ORDERED: Insulin Regular, Human 100 Units/ML 3 ML Vial SUBCUT ONE (16:36)
== END 2020-10-06 21:26 | disposition home or self-care (01) ==
LOC: JD.ED 14:35
DX: R73.9 Hyperglycemia, unspecified (principal); K21.9 Gastro-esophageal reflux disease without esophagitis; E78.00 Pure hypercholesterolemia, unspecified; I10 Essential (primary) hypertension; Z86.16 Personal history of COVID-19; Z79.899 Other long term (current) drug therapy
CPT/HCPCS: 36415; 80053; 81001; 82009; 82947; 83036; 85025; 99284; J1815; J7030; 99283